=== PATIENT | female | born 1990 | race Caucasian/White ===

== ENCOUNTER 2017-10-27 17:26 | Emergency (ER) | payer BC ==
[2017-10-27 19:09] LABS: ABS Basophils 0 10^3/ul (0-0.2); ABS Eosinophils 0.1 10^3/ul (0-0.6); ABS Monocytes 0.7 10^3/ul (0-0.8); ABS Neutrophils 9.8 10^3/ul (1.5-7.7); ABS Nucleated RBC 0 10^3/ul; Eosinophil % 0.8 % (0-6); Hematocrit 42 % (35-47); Hemoglobin 14.2 g/dl (12.0-16.0); Lymphocyte % 8.9 % (25-47); Mean Corpuscular HGB Conc 34 g/dl (31-36); Mean Corpuscular Hemoglobin 26 pg (27-31); Mean Corpuscular Volume 78 fL (80-97); Mean Platelet Volume 8.2 um3 (7.4-10.4); Nucleated Red Blood Cells % 0.1; Platelet Count 222 10^3/ul (150-450); Red Blood Count 5.41 10^6/ul (4.00-5.40); Red Cell Distribution Width 15 % (10.5-15); White Blood Count 11.7 10^3/ul (3.5-10.8)
[2017-10-27 19:25] LABS: EGFR Non-African American 90.6 (>60)
--- NOTE | 2017-10-27 19:26 | ED ---
Abdominal Pain/Female - HPI Summary HPI Summary: This is scribe Maria De Jesus Davis documenting for attending Hailey Seo MD This patient is a 27 year old F presenting to [facility] with a chief complaint of worsening RUQ abdominal pain today with nausea for the pain week. Pain describes as stomach spasms and is rated and 8/10 in pain severity. Denies vomiting. Patient states possibility of . I, Dr. Seo ,personally performed the services described in this documentation as scribed in my presence and it is both accurate and complete - History of Current Complaint Chief Complaint: EDAbdPain Stated Complaint: ABD PAIN Time Seen by Provider: 10/27/17 19:15 Hx Obtained From: Patient Hx Last Menstrual Period: 2 wks ago Onset/Duration: Lasting Weeks Timing: Intermittent Episode Lasting Severity Initially: Mild Severity Currently: Moderate Pain Intensity: 8 Pain Scale Used: 0-10 Numeric Location: Discrete At: RUQ Character: Other: - "stomach spasms" Associated Signs and Symptoms: Positive: Nausea Allergies/Adverse Reactions: Allergies Allergy/AdvReac Type Severity Reaction Status Date / Time No Known Allergies Allergy Verified 10/27/17 17:28 PMH/Surg Hx/FS Hx/Imm Hx Sensory History: Denies: Hx Legally Blind EENT History: Denies: Hx Deafness - Surgical History Surgery Procedure, Year, and Place: x 2 Infectious Disease History: No Infectious Disease History: Denies: Hx Clostridium Difficile, Hx Hepatitis, Hx Human Immunodeficiency Virus (HIV), Hx of Known/Suspected MRSA, Hx Shingles, Hx Tuberculosis, History Other Infectious Disease, Traveled Outside the [place] in Last 30 Days - Family History Known Family History: Positive: Hypertension - mother, Diabetes - mother Negative: Cardiac Disease - Social History Alcohol Use: None Substance Use Type: Reports: None Smoking Status (MU): Never Smoked Tobacco Review of Systems Positive: Abdominal Pain, Nausea Positive: no symptoms reported All Other Systems Reviewed And Are Negative: Yes Physical Exam - Summary Physical Exam Summary: VITAL SIGNS: Reviewed. GENERAL: Patient is a well-developed and nourished female who is lying comfortable in the stretcher. Patient is not in any acute respiratory distress. HEAD AND FACE: No signs of trauma. No ecchymosis, hematomas or skull depressions. No sinus tenderness. EYES: PERRLA, EOMI x 2, No injected conjunctiva, no nystagmus. EARS: Hearing grossly intact. Ear canals and tympanic membranes are within normal limits. MOUTH: Oropharynx within normal limits. NECK: Supple, trachea is midline, no adenopathy, no JVD, no carotid bruit, no c- spine tenderness, neck with full ROM. CHEST: Symmetric, no tenderness at palpation LUNGS: Clear to auscultation bilaterally. No wheezing or crackles. CVS: Regular rate and rhythm, S1 and S2 present, no murmurs or gallops appreciated. ABDOMEN: Soft, RUQ tenderness. No signs of distention. No rebound no guarding, and no masses palpated. Bowel sounds are normal. EXTREMITIES: FROM in all major joints, no edema, no cyanosis or clubbing. NEURO: Alert and oriented x 3. No acute neurological deficits. Speech is normal and follows commands. SKIN: Dry and warm Triage Information Reviewed: Yes Vital Signs On Initial Exam: Initial Vitals Temp Pulse Resp BP Pulse Ox 99.1 F 102 18 138/95 98 10/27/17 17:28 10/27/17 17:28 10/27/17 17:28 10/27/17 17:28 10/27/17 17:28 Vital Signs Reviewed: Yes Diagnostics - Vital Signs Vital Signs Temp Pulse Resp BP Pulse Ox 10/27/17 17:28 99.1 F 102 18 138/95 98 - Laboratory Lab Results: Lab Results 10/27/17 10/27/17 Range/Units 18:55 18:55 WBC 11.7 H (3.5-10.8) 10^3/ul RBC 5.41 H (4.00-5.40) 10^6/ul Hgb 14.2 (12.0-16.0) g/dl Hct 42 (35-47) % MCV 78 L (80-97) fL MCH 26 L (27-31) pg MCHC 34 (31-36) g/dl RDW 15 (10.5-15) % Plt Count 222 (150-450) 10^3/ul MPV 8.2 (7.4-10.4) um3 Neut % (Auto) 83.8 H (38-83) % Lymph % (Auto) 8.9 L (25-47) % Lake % (Auto) 6.4 (0-7) % Eos % (Auto) 0.8 (0-6) % Baso % (Auto) 0.1 (0-2) % Absolute Neuts (auto) 9.8 H (1.5-7.7) 10^3/ul Absolute Lymphs (auto) 1.0 (1.0-4.8) 10^3/ul Absolute Monos (auto) 0.7 (0-0.8) 10^3/ul Absolute Eos (auto) 0.1 (0-0.6) 10^3/ul Absolute Basos (auto) 0 (0-0.2) 10^3/ul Absolute Nucleated RBC 0 10^3/ul Nucleated RBC % 0.1 Sodium 140 (135-145) mmol/L Potassium 3.6 (3.5-5.0) mmol/L Chloride 107 (101-111) mmol/L Carbon Dioxide 27 (22-32) mmol/L Anion Gap 6 (2-11) mmol/L BUN 12 (6-24) mg/dL Creatinine 0.76 (0.51-0.95) mg/dL Est GFR ( Amer) 109.6 (>60) Est GFR (Non-Af Amer) 90.6 (>60) BUN/Creatinine Ratio 15.8 (8-20) Glucose 106 H (70-100) mg/dL Calcium 9.3 (8.6-10.3) mg/dL Total Bilirubin 0.60 (0.2-1.0) mg/dL AST 21 (13-39) U/L ALT 39 (7-52) U/L Alkaline Phosphatase 69 (34-104) U/L C-Reactive Protein 12.37 H (<8.01) mg/L Total Protein 7.6 (6.4-8.9) g/dL Albumin 4.5 (3.2-5.2) g/dL Globulin 3.1 (2-4) g/dL Albumin/Globulin Ratio 1.5 (1-3) Lipase 24 (11.0-82.0) U/L Beta HCG, Quant Pending Result Diagrams: 10/27/17 18:55 10/27/17 18:55 Lab Statement: Any lab studies that have been ordered have been reviewed, and results considered in the medical decision making process. - CT CT A/P CT Interpretation Completed By: Radiologist - 1. Findings most suggestive of Crohn's disease involving the distal ileum with nonspecific infectious enteritis also considered. ED physician reviewed this radiology report. - Ultrasound No standard instances Ultrasound Interpretation Completed By: Radiologist - A Gallbladder US: Hepatic Stenosis and associated hepatomegaly. No additional findings to correlate with patient's symptomatology. ED PHYSICIAN REVIEWED THIS RADIOLOGY REPORT. Abdominal Pain Fem Course/Dx - Course Course Of Treatment: "This patient is a 27 year old F presenting to [facility] with a chief complaint of worsening RUQ abdominal pain today with nausea for the pain week. Pain describes as stomach spasms and is rated and 8/10 in pain severity. Denies vomiting. Patient states possibility of ". A Gallbladder US revealed hepatic stenosis and associated hepatomegaly. No additional findings to correlate with patient's symptomatology. A CT A/P revealed 1. Findings most suggestive of Crohn's disease involving the distal ileum with nonspecific infectious enteritis also considered. In the ED room, the patient recieved Omnipaque, Reglan, Morphine and IV fluids. Patient care was discussed with Dr. Goode who will consult with patient. Care was discussed with hospitalist, Dr. Goode, who recommends that the patient can be discharged home and follow up with PCP as an outpatient. Dr. Goode wrote her consultation. According to her recommendation, patient will be discharged home with a prescription of Augmentin with a diagnosis of Crohns disease. Patient is to follow up with PCP and GI doctor in 1-2 days. Patient is agreeable with this plan. - Diagnoses Provider Diagnoses: Crohns disease - Provider Notifications Discussed Care Of Patient With: Augusta Goode Time Discussed With Above Provider: 23:00 Instructed by Provider To: Other - Dr. Goode will consult with patient. Discharge - Sign-Out/Discharge Documenting (check all that apply): Patient Departure - DISCHARGE - Discharge Plan Condition: Stable Disposition: HOME Prescriptions: Amoxicillin/Clavulanate TAB* [Augmentin TAB 875*] 875 mg PO BID #20 tab Patient Education Materials: Crohn Disease (ED) Referrals: Harry Zhang MD [Primary Care Provider] - 2 Days Moshe De Leon MD [Medical Doctor] - 2 Days Additional Instructions: FOLLOW UP WITH PRIMARY CARE AND GI DOCTOR IN 1-2 DAYS. RETURN TO ED FOR ANY NEW OR WORSENING SYMPTOMS.
[2017-10-27] MEDS ORDERED: Metoclopramide IV* 5 MG/ML 2 ML VIAL IV SLOW PU ONE (19:31)
[2017-10-27] MEDS ORDERED: Morphine INJ* 2 MG/ML 1 ML SYRINGE (TWO MG - NEW SYRINGE VERSION) IV ONE (19:31)
[2017-10-27] MEDS ORDERED: NS 0.9% 1000 ML* 1,000 ML IV ONE (19:31)
[2017-10-27 21:29] LABS: Urine Appearance Cloudy; Urine Blood 2+ (Negative); Urine Color Yellow; Urine Ketones Trace (Negative); Urine Protein Negative (Negative); Urine Red Blood Cell 2+(6-10/hpf) (Absent); Urine Specific Gravity 1.024 (1.010-1.030); Urine Urobilinogen Negative (Negative); Urine White Blood Cell Trace(0-5/hpf) (Absent)
[2017-10-27] MEDS ORDERED: Iohexol 300* (CONTRAST) 10 ML SDV IV ONE (22:35)
[2017-10-27] MEDS ORDERED: Piperacillin/Tazobac ADVAN(*) 3.375 GM in NS 0.9% 100 ML* 100 ML IVPB ONE (23:00)
[2017-10-27] MEDS ORDERED: Ondansetron ODT TAB* 4 MG SL ONE (23:37)
[2017-10-27] MEDS ORDERED: Ondansetron ODT TAB* 4 MG ONE (23:38)
[2017-10-28 01:35] VITALS: BP 123/79
--- NOTE | 2017-10-28 03:34 | CONS ---
CC: Harry Zhang MD* CONSULTATION REPORT: DATE OF CONSULTATION: 10/27/17 TIME OF EVALUATION: 2300. PRIMARY CARE PHYSICIAN: Harry Zhang MD CHIEF COMPLAINT: Abdominal pain. HISTORY OF PRESENT ILLNESS: This is a 27-year-old female with unremarkable past medical history who presents to the emergency room with epigastric pain intermittently radiating to her right upper quadrant. The patient states this morning, she started having spasms and cramping in the epigastric area and then with spasms down to her right upper quadrant. She had 3 episodes of diarrhea this morning. She has been nauseated, but no vomiting. Decreased p.o. She has lost a few pounds intentionally. No blood in her stool. No fevers or chills. No URI symptoms. No joint tenderness or mouth sores. Otherwise, review of systems is negative. In the emergency room, the patient had labs, imaging. There was concern for an abnormal CT scan and was referred to the hospitalist service for further evaluation. In the emergency room, the patient was given 1 L of normal saline, morphine 4 mg at 9 p.m., Reglan 10 mg, and referred to the hospitalist service for further evaluation. PAST MEDICAL HISTORY: Unremarkable. PAST SURGICAL HISTORY: Two C-sections in 2008 and 2011. MEDICATIONS: None. ALLERGIES: No known drug allergies. SOCIAL HISTORY: The patient lives at home with her and 2 children. She is a banker. No smoking or alcohol use. No illicit drug use. FAMILY HISTORY: Mother is alive with diabetes and hypertension. Father is alive and healthy. No history of inflammatory bowel disease. CODE STATUS: Full code. Her is the healthcare proxy. REVIEW OF SYSTEMS: A 14-point review of systems as mentioned in the HPI. Otherwise, negative. PHYSICAL EXAMINATION: Vitals: Temp 99.1, pulse rate is 92, respiratory rate 18 , oxygen saturation 98% on room air, blood pressure 133/93. General: In no acute distress. Resting comfortably with her at bedside. HEENT: Head is normocephalic. Pupils are equal and reactive. Anicteric. Oropharynx: Mucous membranes are moist. Neck is supple. No lymphadenopathy. Cardiac: Regular rate and rhythm. No murmurs, rubs, or gallops. Respiratory: Clear to auscultation. No wheezing, rhonchi, or rales. Abdomen: Positive bowel sounds. Soft, nontender, nondistended. No rebound or guarding. Extremities: No clubbing, cyanosis, or edema. +2 DPs. Neurological: Alert and oriented x3. No gross focal neurologic deficits. LABORATORY DATA: White count 11.7, hemoglobin 14.2, hematocrit 42, platelets 222. Sodium 140, potassium 3.6, chloride 107, bicarb 27, BUN 12, creatinine 0.76 , glucose 106. CRP is 12.37. Beta-hCG less than 0.6. Urinalysis shows trace ketones, +2 blood. RADIOGRAPHIC DATA: Abdominal ultrasound shows hepatic steatosis associated hepatomegaly. No additional findings to correlate the patient's symptomatology. Abdominal and pelvic CAT scan findings showing mildly thickened wall, distal ileal small bowel loops with subtle adjacent vasa recta engorgement, no small bowel dilatation, no associated encapsulated fluid collection, fistula, no segmental wall thickening or masses throughout the colon and completely distended, grossly normal stomach. Findings most suggestive of causes involving the distal ileum with a nonspecific enteritis also considered. ASSESSMENT AND PLAN: This is a 27-year-old female with unremarkable past medical history who presents with 1-day of epigastric pain and diarrhea with nausea found to have nonspecific and infectious enteritis on abdominal CAT scan. Abdominal pain with nausea and diarrhea. Assessment: The patient has no further episodes of diarrhea this evening. No vomiting. She has been n.p.o. in the emergency room. I discussed her findings are most likely infectious enteritis and not Crohn's disease in the setting of acute onset, but that she should follow up with her primary care doctor and consider gastroenterology workup if her symptoms persist. Currently she has no abdominal pain. I discussed giving her Zofran and a p.o. challenge if she is able tolerate fluids with no further nausea and abdominal pain, then she could go home and follow up with her primary care physician, which she is agreeable to. I did relay my recommendations to Dr. Seo. PATIENT TIME: Greater than 45 minutes was spent doing this consultation, more than half the time spent in direct patient contact. [id number]/[facility] #: [id number] MTDD
--- NOTE | 2017-10-28 07:38 | RAD ---
INDICATION: Abdominal pain. COMPARISON: There are no prior studies available for comparison. TECHNIQUE: Multiple real-time images of the right upper quadrant were obtained. FINDINGS: The gallbladder appear normal. No gallstones, gallbladder wall thickening or pericholecystic fluid is present. No positive sonographic Muñiz sign was present. No intra or extrahepatic ductal distention is present. The common bile duct measured 0.4 cm in diameter. The liver is mildly enlarged and increased in echogenicity most consistent with fatty infiltration. No focal abnormality is seen. The pancreas is partially obscured by overlying bowel gas. The right kidney is normal in size without evidence for hydronephrosis. IMPRESSION: 1. NORMAL EXAMINATION OF THE GALLBLADDER. 2. MILD HEPATOMEGALY AND HEPATIC STEATOSIS.
--- NOTE | 2017-10-28 07:49 | RAD ---
CLINICAL HISTORY: ABd pain COMPARISON: Ultrasound dated October 28, 2015 TECHNIQUE: Multiple contiguous axial CT scans were obtained of the abdomen and pelvis after the administration of intravenous contrast. Coronal and sagittal multiplanar reformations are submitted for review. Oral contrast was not administered. Delayed images were obtained through the abdomen. FINDINGS: LUNG BASES: The lung bases are clear. LIVER: The liver is diffusely low in attenuation compared to the spleen. There are no focal hepatic parenchymal masses. The liver measures 21 cm in long axis. BILE DUCTS: There is no intrahepatic or extrahepatic biliary dilatation. GALLBLADDER: The gallbladder is normal, without pericholecystic inflammatory change. PANCREAS: The pancreas is normal, without mass or ductal dilatation. SPLEEN: Normal in size and appearance. UPPER GI TRACT: Evaluation of the gastrointestinal tract is limited by incomplete gastric distention. The upper GI tract is unremarkable. SMALL BOWEL AND MESENTERY: There is mild mucosal thickening of the distal ileum COLON: The colon is normal in contour, course, caliber. There is no pericolonic inflammatory change. There is a tubular, vermiform, hollow viscus that is blind ending, and originates from the cecum, consistent with a normal appendix. There is no periappendiceal inflammatory change. Is best seen on axial images 40 through 26. ADRENALS: Normal bilaterally. KIDNEYS: The kidneys are normal in shape, size, contour, and axis. There is no hydronephrosis or nephrolithiasis. BLADDER: The bladder is smooth in contour. PELVIC ORGANS: The uterus and adnexa are grossly normal for technique. AORTA: The aorta is normal. IVC: Unremarkable LYMPH NODES: There is no lymphadenopathy by size criteria. ABDOMINAL WALL: There is no evidence for abdominal wall hernia. BONES AND SOFT TISSUES: Unremarkable OTHER: None IMPRESSION: 1. HEPATOMEGALY WITH FATTY INFILTRATION OF THE LIVER. 2. MILD MUCOSAL THICKENING OF THE DISTAL SMALL BOWEL. THE DIFFERENTIAL INCLUDES INFECTIOUS OR NONINFECTIOUS INFLAMMATORY ENTERITIS, INCLUDING INFLAMMATORY BOWEL DISEASE. R0
== END 2017-10-28 01:34 | disposition home or self-care (01) ==
LOC: ED 17:26
DX: K50.90 Crohn's disease, unspecified, without complications (principal)
CPT/HCPCS: 36415; 74177; 76705; 80053; 81003; 81015; 83690; 84702; 85025; 85652; 86140; 87086; 96361; 96374; 96375; 99283; A9270-GY; J2270; J2543; J2765; Q9967

== ENCOUNTER 2018-03-04 08:27 | Emergency (ER) | payer BC ==
[2018-03-04 08:36] VITALS: BP 142/99
[2018-03-04] MEDS ORDERED: Ondansetron ODT TAB* 4 MG PO ONE (09:22)
[2018-03-04] MEDS ORDERED: Ondansetron ODT TAB* 4 MG ONE (09:59)
--- NOTE | 2018-03-04 10:07 | UC ---
Abdominal Pain Female HPI - HPI Summary HPI Summary: Onset of nausea and vomiting 3 days ago after eating at [employer]. Feels slightly better today. No vomiting in over 24 hours but nausea is persistent. Had one episode of slightly loose stools yesterday. No fever. Denies URI symptoms. States she feels hungry and wants to eat. States she took a home test 2 days ago and it was negative. LMP about 4 weeks ago. - History of Current Complaint Chief Complaint: UCGI Stated Complaint: NAUSEA VOMITING Time Seen by Provider: 03/04/18 09:40 Hx Obtained From: Patient Hx Last Menstrual Period: 02/03/18 Onset/Duration: Sudden Onset, Lasting Days, Still Present - BUT BETTER Timing: Constant Severity Initially: Moderate Severity Currently: Moderate Pain Intensity: 0 Pain Scale Used: 0-10 Numeric Character: Cramping Aggravating Factor(s): Food Associated Signs and Symptoms: Positive: Decreased Appetite, Nausea, Vomiting, Diarrhea. Negative: Fever, Cough, Back Pain, Constipation, Blood in Stool, Urinary Symptoms Allergies/Adverse Reactions: Allergies Allergy/AdvReac Type Severity Reaction Status Date / Time No Known Allergies Allergy Verified 03/04/18 08:36 Home Medications: Home Medications Acetaminophen 650 mg PO 03/04/18 [History] PMH/Surg Hx/FS Hx/Imm Hx Previously Healthy: Yes - Surgical History Surgical History: Yes Surgery Procedure, Year, and Place: x 2 - Family History Known Family History: Positive: Hypertension - mother, Diabetes - mother Negative: Cardiac Disease - Social History Alcohol Use: None Substance Use Type: None Smoking Status (MU): Never Smoked Tobacco Review of Systems All Other Systems Reviewed And Are Negative: Yes Constitutional: Positive: Negative Respiratory: Positive: Negative Cardiovascular: Positive: Negative Gastrointestinal: Positive: Abdominal Pain, Vomiting, Diarrhea, Nausea Genitourinary: Positive: Negative Physical Exam Triage Information Reviewed: Yes Appearance: Well-Appearing, No Pain Distress, Well-Nourished Vital Signs: Initial Vital Signs Temp 97.6 F 03/04/18 08:29 Pulse 94 03/04/18 08:29 Resp 18 03/04/18 08:29 BP 142/99 03/04/18 08:29 Pulse Ox 100 03/04/18 08:29 Vital Signs Reviewed: Yes Eyes: Positive: Conjunctiva Clear ENT: Positive: Hearing grossly normal Neck: Positive: Supple Respiratory Exam: Normal Cardiovascular Exam: Normal Abdomen Description: Positive: Nontender, Soft. Negative: CVA Tenderness (R), CVA Tenderness (L), Distended, Guarding Bowel Sounds: Positive: Present Musculoskeletal: Positive: No Edema Neurological: Positive: Alert Psychological: Positive: Age Appropriate Behavior Skin: Negative: Rashes Abd Pain Female Course/Dx - Course Course Of Treatment: PATIENT'S SYMPTOMS ARE CONSISTENT WITH A GASTROENTERITIS LIKELY VIRAL IN ETIOLOGY. SYMPTOMS SEEM TO BE IMPROVING ALREADY. WILL GIVE ZOFRAN TO HELP WITH NAUSEA. ENCOURAGED HYDRATION. BLAND DIET. PATIENT DECLINES REPEAT TEST TODAY. WILL FOLLOW-UP IF NOT CONTINUING TO IMPROVE. - Differential Dx/Diagnosis Provider Diagnosis: Gastroenteritis Discharge - Sign-Out/Discharge Documenting (check all that apply): Patient Departure All imaging exams completed and their final reports reviewed: No Studies - Discharge Plan Condition: Stable Disposition: HOME Prescriptions: Ondansetron ODT TAB* [Zofran Odt TAB*] 4 mg PO Q6H PRN #20 tab.odt PRN Reason: Nausea/Vomiting Patient Education Materials: Gastroenteritis (ED) Forms: *Work Release Referrals: [facility] [Provider Group] - If Needed Additional Instructions: GASTROENTERITIS: You have gastroenteritis ("intestinal flu"). This disease is usually caused by a virus. There is no specific treatment. The disease will end by itself. For now, the main danger is dehydration. Give clear liquids. Examples include Pedialyte, Gatorade, clear broth, juices, flat sodas, and jello water. Medications may be prescribed by the physician for special cases. Once tolerated, the clear liquid diet may be supplemented with rice, cereal, toast, applesauce, or bananas. Call the physician or go to the hospital if vomiting increases or blood appears in the bowel movement or vomitus; if you fail to improve, or if signs of dehydration occur (tongue and mouth become dry, lethargy). ENSURE ADEQUATE HYDRATION. CLEAR LIQUIDS, BLAND DIET. AVOID CAFFEINE, DAIRY, GREASY, SPICY FOODS. ONCE YOU ARE TOLERATING CLEAR LIQUIDS YOU CAN ADVANCE TO SIMPLE, BLAND FOODS. - Billing Disposition and Condition Condition: STABLE Disposition: Home
== END 2018-03-04 10:08 | disposition home or self-care (01) ==
LOC: UCEAST 08:27
DX: K52.9 Noninfective gastroenteritis and colitis, unspecified (principal)
CPT/HCPCS: 99212; A9270-GY; G0463

== ENCOUNTER 2018-03-27 18:58 | Emergency (ER) | payer BC ==
--- NOTE | 2018-03-27 20:08 | UC ---
Ear Complaint HPI - HPI Summary HPI Summary: 27 y/o female presents to the urgent care c/o nasal congestion, sinus pain and pressure w/ +PND for the past week. She developed B/L ear pain for the past 2 days. B/L ear w/ decrease hearing and feeling clogged. Pain is mild 2/10 LF>RT associated w/ THOMAS. She has taken Dayquill PO to alleviate symptoms. Pt denies fever. SOB, dizziness, tinnitus, chest pain, abdominal pain, N/V/D, visual disturbances. - History of Current Complaint Chief Complaint: UCEar Stated Complaint: EAR ACHE Time Seen by Provider: 03/27/18 20:01 Hx Obtained From: Patient Hx Last Menstrual Period: 03/12 Onset/Duration: Gradual Onset, Lasting Weeks - 1 week, Worse Since - 2 days w/ B /L ear pain LF>RT Severity Initially: Mild Severity Currently: Mild Pain Intensity: 2 Pain Scale Used: 0-10 Numeric Associated Signs/Symptoms: Positive: Hearing Loss - feels clogged, URI Symptoms - Allergies/Home Medications Allergies/Adverse Reactions: Allergies Allergy/AdvReac Type Severity Reaction Status Date / Time No Known Allergies Allergy Verified 03/27/18 19:14 PMH/Surg Hx/FS Hx/Imm Hx Previously Healthy: Yes - Pt denies PMHX - Surgical History Surgical History: Yes Surgery Procedure, Year, and Place: x 2 - Family History Known Family History: Positive: Hypertension - mother, Diabetes - mother Negative: Cardiac Disease - Social History Occupation: Employed Full-time Lives: With Family Alcohol Use: Rare Substance Use Type: None Smoking Status (MU): Never Smoked Tobacco Review of Systems All Other Systems Reviewed And Are Negative: Yes Constitutional: Positive: Negative Skin: Positive: Negative Eyes: Positive: Negative ENT: Positive: Ear Ache - B/L ear pain and pressure, Nasal Discharge - yellowish , Sinus Congestion, Sinus Pain/Tenderness, Other - yellowish PND Respiratory: Positive: Negative Cardiovascular: Positive: Negative Gastrointestinal: Positive: Negative Genitourinary: Positive: Negative Motor: Positive: Negative Neurovascular: Positive: Negative Musculoskeletal: Positive: Negative Neurological: Positive: Headache Psychological: Positive: Negative Is Patient Immunocompromised?: No Physical Exam - Summary Physical Exam Summary: Vital signs: reviewed General: well developed, well nourished obese female sitting in the examining table w/o any apparent distress Skin: [place], warm and dry, no evidence of atopic dermatitis, psoriasis, seborrhea. HEENT: -Head: atraumatic, non tender; no scalp dermatitis. -Eyes: sclera and conjunctiva clear, PERRLA, EOMI -Ears: no pre- or postauricular lymphadenopathy or erythema; LF external ear canal WNL, LF TM injected w/ erythema, Rt external ear canal clear and RT TM WNL. TMs normal w/out bulging or retraction. Good light reflex. No fluid level, vesicles, or bullae. No perforation. -Nose/Face: erythematous and edematous nasal mucosa with yellowish nasal discahrge, Positive frontal and maxillary sinus tenderness to palpation. Yellowish PND -Mouth/Throat: Mucous membrane moist, posterior pharynx clear, no erythema or exudates. Neck: supple, FROM, nontender, no lymphadenopathy, no meningismus. Chest: Clear to auscultation, normal breath sounds Abd: soft, Bowel sounds active, Nontender. Back: no spinal or CVAT Neuro: A&O x4, GCS 15, no focal neuro deficits, normal behavior for age. Triage Information Reviewed: Yes Vital Signs: Initial Vital Signs Temp 98.2 F 03/27/18 19:11 Pulse 93 03/27/18 19:11 Resp 18 03/27/18 19:11 BP 149/103 03/27/18 19:11 Pulse Ox 100 03/27/18 19:11 Ear Complaint Course/Dx - Course Course Of Treatment: 27 y/o female presents to the urgent care c/o nasal congestion, sinus pain and pressure w/ +PND for the past week. She developed B/ L ear pain for the past 2 days. B/L ear w/ decrease hearing and feeling clogged. Pain is mild 2/10 LF>RT associated w/ THOMAS. She has taken Dayquill PO to alleviate symptoms. Pt denies fever. SOB, dizziness, tinnitus, chest pain, abdominal pain, N/V/D, visual disturbance. Hx obtained. Pt w/ left otitis media and acute bacterial sinusitis on examination. Pt with 1 week of symptoms getting worse. Pt Rx Amoxicillin PO and flonase nasal spray. Pt given Tylenol PO at the clinic to alleivate THOMAS by the nurse. pt tolerated well medication and felt better. Discharge instructions explained to Pt. Advised to Return to the clinic or PCP if symptoms do not improve. Pt's BP is elevated today advised to decrease salt in diet, monitor BP and f/u with PCP in 2-3 days for further management. Pt educated on HTN. Pt understood and agreed with plan of care. - Differential Dx/Diagnosis Differential Diagnosis/HQI/PQRI: Cerumen Impaction, Otitis Externa, Otitis Media , Perforated TM, URI Provider Diagnosis: Otitis media of left ear, Sinusitis, Elevated BP without diagnosis of hypertension Discharge - Sign-Out/Discharge Documenting (check all that apply): Patient Departure - d/c home All imaging exams completed and their final reports reviewed: No Studies - Discharge Plan Condition: Stable Disposition: HOME Prescriptions: Amoxicillin PO (*) [Amoxicillin 875 MG (*)] 875 mg PO BID #20 tab Fluticasone NASAL SPRAY 50MCG* [Flonase NASAL SPRAY 50MCG*] 2 spray BOTH NARES DAILY #1 btl Patient Education Materials: Sinusitis (ED), Ear Infection (ED), Low-Sodium Diet (ED) Referrals: [facility] [place] [facility] [Outside] - 3 Days Additional Instructions: 1- Please increase fluid intake and rest. take full course of antibiotic to avoid resistance 2-Use Flonase as directed to help drain fluid. Also buy saline drops to clear sinuses 3-Take Ibuprofen or Tylenol PO q6-8hrs prn to alleviates sinus pain and headache 4-Return to the clinic or PCP in 3 days if symptoms do not improve for further management and treatment - Billing Disposition and Condition Condition: STABLE Disposition: Home
[2018-03-27] MEDS ORDERED: Acetaminophen TAB* 325 MG PO ONE (20:18)
[2018-03-27 20:27] VITALS: BP 148/102
== END 2018-03-27 20:33 | disposition home or self-care (01) ==
LOC: UCEAST 18:58
DX: H66.92 Otitis media, unspecified, left ear (principal); J32.9 Chronic sinusitis, unspecified; R03.0 Elevated blood-pressure reading, without diagnosis of hypertension
CPT/HCPCS: 99212; A9270-GY; G0463

== ENCOUNTER 2019-10-05 09:12 | Inpatient (IN) ==
[2019-10-05] MEDS ORDERED: Lactated Ringers 1000 ml BAG 1,000 ML IV ONE (10:21)
[2019-10-05] MEDS ORDERED: Buffered Lidocaine 1% SYRIN 1 ml INTRADERM ONE (10:39)
[2019-10-05] MEDS ORDERED: Penicillin G Potassium IV 5,000,000 UNITS in NS 0.9% 100 ml BAG 100 ML IVPB ONE (11:00)
[2019-10-05] MEDS: Betamethasone 6 mg/ml 5 ml VIAL IM SCH (11:17)
[2019-10-05 11:18] LABS: ABS Eosinophils 0.1 10^3/ul (0-0.6); ABS Lymphocytes 1.5 10^3/ul (1.0-4.8); ABS Monocytes 0.6 10^3/ul (0-0.8); Eosinophil % 0.9 %; Hematocrit 31 % (35-47); Hemoglobin 10.4 g/dL (12.0-16.0); Lymphocyte % 16.8 %; Mean Corpuscular HGB Conc 33 g/dL (31-36); Mean Corpuscular Hemoglobin 23 pg (27-31); Mean Corpuscular Volume 70 fL (80-97); Nucleated Red Blood Cells % 0.1; Platelet Count 162 10^3/uL (150-450); Red Blood Count 4.44 10^6 /uL (3.70-4.87); Red Cell Distribution Width 16 % (10-15); White Blood Count 9.2 10^3/uL (3.5-10.8)
[2019-10-05 11:23] LABS: Albumin 3.2 g/dL (3.2-5.2); Calcium 8.6 mg/dL (8.6-10.3); EGFR African American 118.9 (>60); EGFR Non-African American 98.3 (>60); Globulin 3.1 g/dL (2-4); Potassium 4.1 mmol/L (3.5-5.0); Total Bilirubin 0.3 mg/dL (0.2-1.0); Total Protein 6.3 g/dL (6.4-8.9); Uric Acid 5.7 mg/dL (2.3-6.6)
[2019-10-05 11:27] LABS: Urine Benzodiazepine Screen None Detected (None Detect); Urine Opiates Screen None Detected (None Detect)
[2019-10-05 11:29] LABS: Urine Appearance Cloudy; Urine Bilirubin Negative (Negative); Urine Blood Negative (Negative); Urine Color Yellow; Urine Glucose Negative (Negative); Urine Ketones Negative (Negative); Urine Nitrite Negative (Negative); Urine Protein 1+(30 mg/dL) (Negative); Urine Specific Gravity 1.023 (1.010-1.030); Urine Urobilinogen Negative (Negative)
[2019-10-05 11:41] LABS: Urine Bacteria 1+ (Absent); Urine Red Blood Cell 3+(>10/hpf) (Absent); Urine Squamous Epithelial Cell Present (Absent); Urine White Blood Cell Trace(0-5/hpf) (Absent)
[2019-10-05] MEDS: Lactated Ringers 1000 ml BAG 1,000 ML IV SCH ×2 (15:10→23:45)
[2019-10-05] MEDS: Penicillin G Potassium IV 3,000,000 UNITS in NS 0.9% 100 ml BAG 100 ML IVPB SCH ×3 (15:20→23:24)
[2019-10-06] MEDS: Penicillin G Potassium IV 3,000,000 UNITS in NS 0.9% 100 ml BAG 100 ML IVPB SCH ×5 (03:25→20:56)
[2019-10-06] MEDS ORDERED: Morphine 10 MG/ML VIAL (1 ml) IV ONE (04:14)
[2019-10-06] MEDS ORDERED: Morphine 10 MG/ML VIAL (1 ml) ONE (04:20)
[2019-10-06] MEDS: Lactated Ringers 1000 ml BAG 1,000 ML IV SCH ×2 (04:30→09:31)
[2019-10-06 06:22] LABS: ABS Lymphocytes 1.6 10^3/ul (1.0-4.8); ABS Monocytes 0.6 10^3/ul (0-0.8); Hematocrit 31 % (35-47); Lymphocyte % 13.3 %; Mean Corpuscular HGB Conc 32 g/dL (31-36); Mean Corpuscular Hemoglobin 23 pg (27-31); Mean Corpuscular Volume 70 fL (80-97); Mean Platelet Volume 9.9 fL (7.4-10.4); Nucleated Red Blood Cells % 0.1; Platelet Count 161 10^3/uL (150-450); Red Blood Count 4.39 10^6 /uL (3.70-4.87); Red Cell Distribution Width 16 % (10-15)
[2019-10-06 09:17] LABS: Urine Appearance Clear; Urine Bilirubin Negative (Negative); Urine Blood Negative (Negative); Urine Color Yellow; Urine Glucose Negative (Negative); Urine Ketones 2+ (Negative); Urine Nitrite Negative (Negative); Urine Protein Negative (Negative); Urine Urobilinogen Negative (Negative)
[2019-10-06] MEDS: Betamethasone 6 mg/ml 5 ml VIAL IM SCH (10:59)
[2019-10-07] MEDS: Penicillin G Potassium IV 3,000,000 UNITS in NS 0.9% 100 ml BAG 100 ML IVPB SCH ×4 (01:01→13:47)
[2019-10-07] MEDS ORDERED: Labetalol IV 5 MG/ML 20 ml VIAL IV PUSH ONE (08:42)
[2019-10-07] MEDS ORDERED: Sodium Citrate/Citric Acid LIQ 15 ML UDC ONE (11:41)
[2019-10-07] MEDS ORDERED: fentaNYL 100 mcg/2 ml 50 MCG/ML VIAL ONE (11:41)
[2019-10-07] MEDS ORDERED: ceFOXitin 2 GM IVPREMIX 2 GM/50 ML BAG ONE (12:07)
[2019-10-07] MEDS ORDERED: Dibucaine 1% OINT 28.35 GM TUBE PR PRN (13:12)
[2019-10-07] MEDS ORDERED: Witch Hazel PAD JAR TOPICAL PRN (13:12)
[2019-10-07] MEDS ORDERED: Glycerin ADULT 2.4 gm SUPP PR PRN (13:12)
[2019-10-07] MEDS ORDERED: diPHENhydraMINE IV 50 MG/ML 1 ml VIAL (BENADRYL) IV PRN (13:15)
[2019-10-07] MEDS ORDERED: Naloxone 0.4 mg VIAL 0.4 mg/ml 1 ml VIAL IV PRN (13:15)
[2019-10-07] MEDS ORDERED: DiMENhydriNATE IV 50 mg/ml 1 ml VIAL IV PUSH PRN (13:15)
[2019-10-07] MEDS ORDERED: Ondansetron 4 mg VIAL 2 MG/ML 2 ml VIAL IV PRN (13:15)
[2019-10-07] MEDS ORDERED: Oxytocin in LR 20 UNITS/1,000 ML BAG IVPB SCH (14:00)
[2019-10-07] MEDS ORDERED: Lactated Ringers 1000 ml BAG 1,000 ML IV SCH (14:00)
[2019-10-07] MEDS: Lactated Ringers 1000 ml BAG 1,000 ML IV SCH (14:36)
[2019-10-08] MEDS ORDERED: HYDROmorphone 0.5 MG/0.5 ML SYRINGE IV SLOW PU PRN (05:17)
[2019-10-08 08:42] LABS: Hematocrit 20 % (35-47); Hemoglobin 6.4 g/dL (12.0-16.0); Mean Corpuscular HGB Conc 33 g/dL (31-36); Mean Corpuscular Hemoglobin 23 pg (27-31); Mean Corpuscular Volume 70 fL (80-97); Mean Platelet Volume 9.2 fL (7.4-10.4); Platelet Count 134 10^3/uL (150-450); Red Blood Count 2.81 10^6 /uL (3.70-4.87); Red Cell Distribution Width 16 % (10-15); White Blood Count 12.3 10^3/uL (3.5-10.8)
[2019-10-08 08:43] LABS: ABS Lymphocytes 2.4 10^3/ul (1.0-4.8); Eosinophil % 0.1 %; Lymphocyte % 19.3 %; Nucleated Red Blood Cells % 0.1
[2019-10-08 22:23] LABS: ABS Lymphocytes 2.4 10^3/ul (1.0-4.8); ABS Monocytes 1.1 10^3/ul (0-0.8); Eosinophil % 0.4 %; Hematocrit 29 % (35-47); Hemoglobin 9.6 g/dL (12.0-16.0); Lymphocyte % 17.8 %; Mean Corpuscular HGB Conc 34 g/dL (31-36); Mean Corpuscular Hemoglobin 25 pg (27-31); Mean Corpuscular Volume 73 fL (80-97); Mean Platelet Volume 9.1 fL (7.4-10.4); Nucleated Red Blood Cells % 0.2; Platelet Count 143 10^3/uL (150-450); Red Blood Count 3.91 10^6 /uL (3.70-4.87); Red Cell Distribution Width 19 % (10-15); White Blood Count 13.4 10^3/uL (3.5-10.8)
[2019-10-10 15:02] VITALS: BP 151/92
== END 2019-10-10 15:14 | disposition home or self-care (01) | DRG 540 ==
LOC: MCHOBOUT 09:12 → MCHOB 10:24
PROVIDERS: ADMIT Obstetrics & Gynecology; ATTEND Obstetrics & Gynecology